=== PATIENT | male | born 1995 | race African-American/Black ===

== ENCOUNTER 2019-09-15 13:16 | Emergency (ER) | payer BC ==
[~2019-09-15] VITALS: Ht 180.3 cm; Wt 68.0 kg
[~2019-09-15 13:16] MED LIST: ACULAR5 ML RIGHT EYE; IBUPROFEN600 MG ORAL; NKM
[2019-09-15 13:40] VITALS: BP 135/77
--- NOTE | 2019-09-15 13:40 | NUR ---
ED Nurse Note: PT CAME IN TO ED DUE TO ANXIETY X 2 WEEKS. PLACED VSS, PLACED ON BED.
--- NOTE | 2019-09-15 13:42 | NUR ---
ED Nurse Note: ERPA on bedside.
--- NOTE | 2019-09-15 13:46 | Emergency Room Report ---
History of Present Illness General Chief Complaint: General Complaint Source: Patient Present Illness HPI 23-year-old male with no signal past medical history here complaining of pain extremely anxious x2 weeks. Patient reported 2 weeks ago he broke up with his girlfriend and he has been anxious ever since. Denies any SI and HI. Complains of difficulty sleeping at night and lack of appetite. Denies visual auditory hallucination, impulsivity, grandiosity. Has not taken medication for anxiety in the past. Reports that he is interested in the start of medication and therapy. Reports that last night he took 1 pill of Meg and has been anxious. Denies chest pain, shortness of breath, palpitation, headache or dizziness. Denies any methamphetamine use, other drug use, tobacco smoke, alcohol intake. Allergies: Coded Allergies: No Known Allergies (Unverified , 08/19/15) YES VERIFIED Patient History Past Medical History: see triage record Past Surgical History: unable to obtain Family History: none Immunizations: UTD Reviewed Nursing Documentation: PMH: Agreed; PSxH: Agreed Nursing Documentation-PMH Past Medical History: No History, Except For Review of Systems All Other Systems: negative except mentioned in HPI Physical Exam Vital Signs Date Time Temp Pulse Resp B/P (MAP) Pulse Ox O2 Delivery O2 Flow Rate FiO2 09/15/19 13:30 98.2 84 16 135/77 (96) 96 Room Air Sp02 EP Interpretation: reviewed, normal General Appearance: alert/responsive, no apparent distress, GCS 15, non-toxic Head: atraumatic Eyes: PERRL, lids + conjunctiva normal ENT: hearing intact, no angioedema Neck: supple/symm/no masses, no meningismus Respiratory: effort normal, no wheezing, chest symmetrical Cardiovascular: regular rate, rhythm, no edema Cardiovascular #2: 2+ carotid (R), 2+ carotid (L) Gastrointestinal: non-tender, no mass, non-distended, no rebound/guarding, normal bowel sounds Musculoskeletal: gait & station normal, normal ROM, strength & tone normal, non -tender Neurologic: oriented x3, sensory intact, normal speech Psychiatric: memory normal, no suicidal/homicidal ideation, anxious Skin: no rash, well hydrated Lymphatic: normal inspection Medical Decision Making PA Attestation All my diagnosis and treatment plans were reviewed ad discussed with my supervising physician Dr. Bell Diagnostic Impression: Primary Impression: Anxiety ER Course 23-year-old male with no signal past medical history here complaining of pain extremely anxious x2 weeks. Patient reported 2 weeks ago he broke up with his girlfriend and he has been anxious ever since. Denies any SI and HI. Complains of difficulty sleeping at night and lack of appetite. Denies visual auditory hallucination, impulsivity, grandiosity. Has not taken medication for anxiety in the past. Reports that he is interested in the start of medication and therapy. Reports that last night he took 1 pill of Meg and has been anxious. Denies chest pain, shortness of breath, palpitation, headache or dizziness. Denies any methamphetamine use, other drug use, tobacco smoke, alcohol intake. Ddx considered but are not limited to: generalized anxiety disorder, panic attack, depression with psychotic feature, bipolar disorder, drug overdose Vital signs: are WNL, pt. is afebrile H&PE are most consistent with: Ddx considered but are not limited to: generalized anxiety disorder, panic attack, depression with psycotic featurs, bipolar disorder, drug overdose Vital signs: are WNL, pt. is afebrile H&PE are most consistent with: anxiety ORDERS: none required at this time, the diagnosis is clinical ED INTERVENTIONS: None required at this time. DISCHARGE: At this time pt. is stable for d/c to home. Will provide printed patient care instructions, and any necessary prescriptions. Care plan and follow up instructions have been discussed with the patient prior to discharge. At this time I gave patient a list of different mental health facilities that he can go to as I did not feel comfortable in starting him on any SSRI or SNRI as he reported that he does not know if he will remain compliant with taking his medication. Patient has no suicidal homicidal ideation and agrees to go to those mental health facilities. I advised him to stop using any drugs especially mildly as able increase his anxiety. If worsening symptoms return to the emergency room Last Vital Signs Date Time Temp Pulse Resp B/P (MAP) Pulse Ox O2 Delivery O2 Flow Rate FiO2 09/15/19 13:40 84 16 Room Air 09/15/19 13:30 98.2 135/77 (96) 96 Disposition: HOME, SELF-CARE Condition: Stable Patient Instructions: Generalized Anxiety Disorder Additional Instructions: Follow-up with a psychiatrist and a therapist in order to start anxiety medication possibly or therapy. Avoid using Meg or any other drugs. Try to minimize avoid tobacco smoking marijuana use. If worsening symptoms return to the emergency room Orville Albarran Sep 15, 2019 13:46
[2019-09-15 13:53] VITALS: BP 135/77
--- NOTE | 2019-09-15 13:53 | NUR ---
ER DISCHARGE NOTE: Pt is cleared to be discharged per ERMD. Pt is AOx4, VSS, on RA. pt was given dc and prescription instructions, pt was able to verbalize understanding, pt id band removed. pt is able to ambulate with steady gait. pt took all belongings.
== END 2019-09-15 13:53 | disposition home or self-care (01) ==
LOC: EMR 13:45
DX: F41.9 Anxiety disorder, unspecified (principal)
CPT/HCPCS: 99282

== ENCOUNTER 2019-10-10 06:45 | Emergency (ER) | payer BC ==
[~2019-10-10] VITALS: Ht 180.3 cm; Wt 52.2 kg
[2019-10-10 07:06] VITALS: BP 141/88
--- NOTE | 2019-10-10 07:10 | NUR ---
ED Nurse Note: Patient walked into ED from home c/o longstanding depression, unknown when it started. Patient states he has been unable to function normally recently. Patient has used MDMA in the past to help feel better. Patient AxO x 4, no suicidal ideation or desire to hurt others.
--- NOTE | 2019-10-10 07:20 | Emergency Room Report ---
History of Present Illness General Chief Complaint: General Complaint Source: Patient Present Illness HPI Patient presents complaining about anxiety. This has been going on for several months. The main factor is a relationship with a girlfriend. He has been self treating with Meg's. He took 1 before coming in today. He says he takes them less than twice a week. At times he gets panic attacks with palpitations and feeling of pressure in his chest. He has found that walking helps with these. He has had some trouble sleeping but not regularly. He has been able to eat without any vomiting or abdominal pain. He is not losing weight. He feels depressed at times. At times he does not care what happens in his life but does not have suicidal ideation or thoughts of harming himself. He has a group of friends who have been supportive. He occasionally drinks alcohol but not daily. His living situation is stable and there are no conflicts and he is safe. He has not sought psychiatric or psychological help in the past. He is never required hospitalization. No fevers, chills, sore throat, nausea, diarrhea, dysuria, joint pain, rashes, visual changes, dizziness, headache. Denies major medical problems. The patient had a full physical with labs and EKG 4 months ago. He says that all results were normal. 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 Reviewed Nursing Documentation: PMH: Agreed; PSxH: Agreed Nursing Documentation-PM Past Medical History: No Stated History Review of Systems All Other Systems: negative except mentioned in HPI Physical Exam Vital Signs Date Time Temp Pulse Resp B/P (MAP) Pulse Ox O2 Delivery O2 Flow Rate FiO2 10/10/19 06:58 98.2 98 16 141/88 (105) 94 Room Air Sp02 EP Interpretation: reviewed, normal General Appearance: well appearing, no apparent distress, GCS 15, non-toxic Head: normocephalic, atraumatic Eyes: bilateral eye normal inspection, bilateral eye PERRL, bilateral eye Scleral Injection ENT: moist mucus membranes Neck: supple Respiratory: chest non-tender, lungs clear, normal breath sounds Cardiovascular #1: regular rate, rhythm Cardiovascular #2: 2+ radial (R) Gastrointestinal: normal inspection, normal bowel sounds, non tender, no mass, non-distended, scaphoid Genitourinary: no CVA tenderness Musculoskeletal: back normal, normal range of motion, gait/station normal Neurologic: alert, motor strength/tone normal, oriented x3, cerebellar normal, speech normal Psychiatric: mood/affect normal, no suicidal/homicidal ideation Skin: no rash, warm/dry Medical Decision Making Diagnostic Impression: Primary Impression: Anxiety ER Course Patient presents with anxiety. Differential includes anxiety, panic attacks, electrolyte imbalance, substance abuse amongst others. He had labs and EKG done 4 months ago and reports that they were normal. He denies suicidal ideation and has good support system. Based on his history and physical exam no studies are necessary at this time. Discussed with patient that mollies may make the situation worse. Discussed the need for outpatient follow-up both with his doctor and also suggested psychiatric help. Discussed treatment plan with patient. Patient stable for outpatient observation and treatment. Last Vital Signs Date Time Temp Pulse Resp B/P (MAP) Pulse Ox O2 Delivery O2 Flow Rate FiO2 10/10/19 07:26 98.2 77 16 141/88 94 Room Air Status: unchanged Disposition: HOME, SELF-CARE Condition: Stable Scripts Hydroxyzine Pamoate (VISTARIL) 25 Mg Capsule 25 MG PO Q8HR PRN for anxiety, #10 CAP Prov: Nate Bradley MD 10/10/19 Referrals: NON PHYSICIAN (PCP) Nate Bradley MD Oct 10, 2019 07:20
[2019-10-10] MEDS ORDERED: VISTARIL25 M1 PO ×2 (07:23)
[2019-10-10 07:26] VITALS: BP 141/88
--- NOTE | 2019-10-10 07:26 | NUR ---
ER DISCHARGE NOTE: Patient cleared for DC by Dr. Bradley, patient AxO x 4, no s/s of acute distress. Patient verbalized understanding of DC instructions, will f/u w/ mental health. Patient ID band removed. Able to ambulate with steady gait, took all belongings.
== END 2019-10-10 07:26 | disposition home or self-care (01) ==
LOC: EMR 07:10
DX: F41.9 Anxiety disorder, unspecified (principal); F19.90 Other psychoactive substance use, unspecified, uncomplicated; Z72.89 Other problems related to lifestyle
CPT/HCPCS: 99282

== ENCOUNTER 2019-10-24 04:38 | Emergency (ER) | payer BC ==
[~2019-10-24] VITALS: Ht 185.4 cm; Wt 69.4 kg
[~2019-10-24 04:38] MED LIST changes: +VISTARIL25 M1 PO
[2019-10-24 04:57] VITALS: BP 157/99
[2019-10-24 06:15] VITALS: BP 122/76
--- NOTE | 2019-10-24 22:26 | Emergency Room Report ---
History of Present Illness General Chief Complaint: Palpitations Source: Patient Present Illness HPI 24-year-old male presents the ED for evaluation. States that he used some drugs tonight and feels anxious. States his heart is racing. Denies chest pain or shortness of breath. Denies hearing voices. Denies nausea or vomiting. States he starting to feel better and wants just to rest. No other aggravating relieving factors. Denies any other associated symptoms COVID-19 risk:Travel to affect: No Allergies: Coded Allergies: No Known Allergies (Unverified , 08/19/15) YES VERIFIED Patient History Past Medical History: none Past Surgical History: none Pertinent Family History: none Social History: Reports: drug use; Denies: smoking, alcohol use Immunizations: UTD Reviewed Nursing Documentation: PMH: Agreed; PSxH: Agreed Nursing Documentation-PMH Past Medical History: No Stated History Review of Systems All Other Systems: negative except mentioned in HPI Physical Exam Vital Signs Date Time Temp Pulse Resp B/P (MAP) Pulse Ox O2 Delivery O2 Flow Rate FiO2 10/24/19 04:48 98.4 110 20 157/99 (118) 97 Room Air Sp02 EP Interpretation: reviewed, normal General Appearance: no apparent distress, alert, GCS 15, non-toxic Head: normocephalic, atraumatic Eyes: bilateral eye normal inspection, bilateral eye PERRL ENT: hearing grossly normal, normal pharynx, no angioedema, normal voice Neck: full range of motion, supple/symm/no masses Respiratory: chest non-tender, lungs clear, normal breath sounds, speaking full sentences Cardiovascular #1: regular rate, rhythm, no edema Cardiovascular #2: 2+ carotid (R), 2+ carotid (L), 2+ radial (R), 2+ radial (L) , 2+ dorsalis pedis (R), 2+ dorsalis pedis (L) Gastrointestinal: normal bowel sounds, non tender, soft, non-distended, no guarding, no rebound Rectal: deferred Genitourinary: normal inspection, no CVA tenderness Musculoskeletal: back normal, normal range of motion, gait/station normal, non- tender Neurologic: alert, motor strength/tone normal, oriented x3, sensory intact, responsive, speech normal Psychiatric: judgement/insight normal, memory normal, mood/affect normal, no suicidal/homicidal ideation Reflexes: 3+ bicep (R), 3+ bicep (L), 3+ tricep (R), 3+ tricep (L), 3+ knee (R) , 3+ knee (L) Skin: no rash Lymphatic: no adenopathy Medical Decision Making Diagnostic Impression: Primary Impression: Panic attack Additional Impression: Substance abuse ER Course Hospital Course 24-year-old male presents to ED status post substance abuse. feels anxious. Clinical course Patient placed on stretcher. Given that patient is able to provide an adequate history, I see no need to check blood work or place an IV. Patient agrees. Patient requests to sleep. Patient allowed to sleep. My assessment shows no evidence of SI/HI requiring psychiatric evaluation. Patient allowed to rest in now awake alert oriented x3. ambulating without difficulty. Safe for discharge for close outpatient follow-up. I will provide referrals Diagnosis - panic attack, substance abuse stable and discharged to home. Followup with PMD. Return to ED if symptoms recur or worsen Last Vital Signs Date Time Temp Pulse Resp B/P (MAP) Pulse Ox O2 Delivery O2 Flow Rate FiO2 10/24/19 06:15 98.2 98 19 122/76 99 Room Air Status: improved Disposition: HOME, SELF-CARE Condition: Stable Referrals: NON PHYSICIAN (PCP) [facility] Patient Instructions: Panic Attacks Michael Whitfield MD Oct 24, 2019 22:26
== END 2019-10-24 06:15 | disposition home or self-care (01) ==
LOC: EMR 05:10
DX: F41.0 Panic disorder [episodic paroxysmal anxiety] (principal); F19.10 Other psychoactive substance abuse, uncomplicated
CPT/HCPCS: 99281

== ENCOUNTER 2020-04-13 06:08 | Emergency (ER) | payer BC ==
[~2020-04-13] VITALS: Ht 180.3 cm; Wt 68.0 kg
--- NOTE | 2020-04-13 06:20 | NUR ---
ED Nurse Note: Pt ambulated to ED from home after taking 5-6 500mg tylenol tabs at 0500. Pt states " I don't want to be here anymore" Pt is A&Ox4, VSS, only reports some mild dizziness. Pt placed on conveyor monitor, Poison control contacted, ERMD at bedside, blood sent to lab. Suicide precautions in place
--- NOTE | 2020-04-13 06:49 | Emergency Room Report ---
History of Present Illness General Chief Complaint: Behavioral Complaint Source: Patient Present Illness HPI 24-year-old male with past medical history of depression presents after Tylenol ingestion at 0500. Pt states he took 5 tylenol 500mg tabs at 0500 with a whole bottle of tequila because he was trying to end his life. He also self-inflicted a laceration to the dorsal left hand. Denies cutting anywhere else on his body. Denies nausea, vomiting, diarrhea, melena, hematochezia, homicidal ideation, auditory/visual hallucination, trauma, headache, neck pain, rash, fever, chest pain, shortness of breath, or other complaints. Patient is stressed from the pandemic. He also had a previous suicide attempt at the beginning of the pandemic. The patient's symptoms were gradual onset, severity was moderate, duration since 2 hours. Quality: Depressed. Does not feel pain Past medical history: Depression Past surgical history: Cyst removal as a child Smoking: Denies Alcohol use: Positive Drug use: Denies Review of systems: CONST: No fevers or chills, No night sweats PULMONARY: No productive cough, No shortness of breath CARDIAC: No chest pain, No palpitations GI: No vomiting, No diarrhea , No melena_or_BRBPR : No dysuria, No hematuria, No discharge NEURO: No new_focal_weakness_or_numbness, No confusion, No vision changes 14 point Review of Systems is otherwise negative except per HPI Physical Exam: GENERAL: Awake_alert_ nontoxic, no acute distress Spo2 98% on RA -normal EYES: Extraocular muscles are intact. Conjunctivae clear. Lids without swelling ENT: External nose and ear normal_in_appearance. Oropharynx clear. Head_ atraumatic, Moist_oral_mucosa NECK: No JVD. No meningismus. No thyromegaly. Supple. Trachea midline RESP: Normal respiratory effort. Symmetric rise. No stridor. Clear_to_ auscultation_No_rales_No_wheezes CARDIAC: Regular rate and regular rhytm. No_significant pedal edema. ABDOMEN: Soft. Nondistended. Nontender_No_rebound_or_guarding. MSK: Normal muscle tone, without rigidity. Extremities without asymmetric deformity or swelling. SKIN: 1 cm left dorsal hand laceration (self-inflicted) to the webspace between the first and second digit. Radial pulse plus 2 out of 4. Compartments are soft and compressible. NEUROLOGIC: Alert, oriented x3. Motor_and_sensation_grossly_intact. No truncal ataxia. Gait_normal Psych: Normal mood and affect, normal judgment and insight Suicidal ideation Denies homicidal ideation, auditory or visual hallucinations - COORDINATION OF CARE Case was discussed with: Patient Any labs and imaging that were ordered were interpreted as part of the medical decision making: Medical Decision Making/Plan: Differential diagnosis includes severe depression, suicidal ideation, bipolar disorder, schizophrenia, drug abuse, drug overdose, among others. Patient endorses suicide attempt by Tylenol ingestion. Poison control notified at 0640 They exhibit no signs of any toxic syndrome or drug / alcohol withdrawal. Labs were ordered for evaluation, and results are reassuring with no evidence of occult overdose, or severe metabolic derangement. Tylenol level 1.5hr after ingestion is 15. Repeat at 3hrs post ingestion is 19. No indication for NAC. Etoh Level 122. Repeat Etoh 101. Repeat CMP is unremarkable. Spoke with Poison Control (Roddy) and updated them on all repeat labs. Recommend medical clearance. Do not recommend NAC at this time. State tylenol is at subtoxic levels at 4hrs and normal LFT and unlikely to uptrend at this point. EKG shows no obvious signs of TCA overdose. The patient was observed for a period of time in the ED with serial neurologic exams. After serial neurologic exams in the emergency department, the patient remains clinically sober. ED intervention included IVFs, thiamine, and ativan. Tdap UTD. Lac is superficial and not requiring sutures. Patient is MEDICALLY CLEARED. The patients presentation seems to be consistent with suicidal ideation, without any complications such as suicide attempt or overdose. The patient appears to be stable for transfer to a psychiatric facility for further psychiatric evaluation and care, without any obvious medical etiology for their symptoms. pipe assembly worker was consulted to assist with placement into an inpatient psychiatric team, and the patient is awaiting evaluation and placement on a psychiatric hold by the PET team. Patient accepted to [facility] for continuation of psychiatric care. He is currently hemodynamically stable. Medically cleared. Allergies: Coded Allergies: No Known Allergies (Unverified , 08/19/15) YES VERIFIED COVID-19 Screening Contact w/high risk pt: No Experienced COVID-19 symptoms?: No COVID-19 Testing performed STUFFED CASING TIER: No Nursing Documentation-PM Past Medical History: No Stated History Physical Exam Vital Signs Date Time Temp Pulse Resp B/P (MAP) Pulse Ox O2 Delivery O2 Flow Rate FiO2 04/13/20 06:25 97.9 80 18 128/73 (91) 95 Room Air Sp02 EP Interpretation: reviewed, normal Medical Decision Making Diagnostic Impression: Primary Impression: Suicidal ideation Additional Impressions: Depression Alcohol abuse Deliberate self-cutting Hand laceration Tylenol ingestion Anxiety EKG Diagnostic Results ANA MARÍA Scribkarri Text 12-lead EKG (interpreted by me) Time: 0638 Indication: Rhythm analysis Tracing visualized and Interpreted by me. Rhythm: Normal sinus rhythm Rate: 71 bpm QTc: 389 Morphology: No_significant_ST_elevations_or_depressions, No STEMI Impression: Normal_sinus_rhythm_without_significant_abnormality Rhythm Strip Diag. Results Rhythm Strip Time: 06:48 EP Interpretation: yes Rate: 71 Rhythm: NSR, no PVC's, no ectopy Reevaluation Time: 12:07 Last Vital Signs Date Time Temp Pulse Resp B/P (MAP) Pulse Ox O2 Delivery O2 Flow Rate FiO2 04/13/20 06:25 97.9 80 18 128/73 (91) 95 Room Air Status: improved Disposition: PSYCH HOSP/UNIT Admit Decision Time: 07:40 Condition: Stable Referrals: NOT CHOSEN IPA/,REFERRING (PCP) Glenny Arreguin D.O. Apr 13, 2020 06:49
[2020-04-13 06:59] VITALS: BP 128/73
[2020-04-13] MEDS ORDERED: Tetanus/Diptheria/Pertussis IM ONE (07:00)
--- NOTE | 2020-04-13 07:07 | NUR ---
HAND-OFF: Report given to BOLIVAR Graves.
[2020-04-13 07:09] LABS: BASOPHILS % (AUTO) 2.2 % (0.0-2.0); EOSINOPHILS % (AUTO) 3.2 % (0.0-3.0); HEMATOCRIT 38.2 % (42.0-52.0); HEMOGLOBIN 12.5 G/DL (14.2-18.0); LYMPHOCYTES % (AUTO) 47.7 % (20.0-45.0); MEAN CORPUSCULAR VOLUME 85 FL (80-99); MONOCYTES % (AUTO) 9.1 % (1.0-10.0); NEUTROPHILS % (AUTO) 37.9 % (45.0-75.0); PLATELET COUNT 230 K/UL (150-450); RED CELL DISTRIBUTION WIDTH 14.3 % (11.6-14.8); WHITE BLOOD COUNT 3.6 K/UL (4.8-10.8)
[2020-04-13 07:21] LABS: ANION GAP 11 mmol/L (5-15); BLOOD UREA NITROGEN 20 mg/dL (7-18); CALCIUM 8.4 MG/DL (8.5-10.1); CARBON DIOXIDE 27 MMOL/L (21-32); CHLORIDE 103 MMOL/L (98-107); CREATININE 1.3 MG/DL (0.55-1.30); POTASSIUM 3.5 MMOL/L (3.5-5.1); SODIUM 141 MMOL/L (136-145)
[2020-04-13 07:25] VITALS: BP 93/46
--- NOTE | 2020-04-13 07:30 | NUR ---
ED Nurse Note: Patient found in the room, resting with eyes closed. Patient arousable when RN called his name. Patient awake, alert, oriented x 4. Regular, unlabored breathing noted. Patient wants to hurt himself by cutting. Denies HI at this time. Denies hearing voice or seeing things that were not here. Suicidal precautions maintained and increased observation. Food/water offered. Comfort measure offered. Bed in lowest position. Room safety check done. Placed patient's belonging in psych locker #3.
[2020-04-13 07:34] LABS: ALANINE AMINOTRANSFERASE 34 U/L (12-78); ALBUMIN 3.9 G/DL (3.4-5.0); ALBUMIN/GLOBULIN RATIO 0.9 (1.0-2.7); ALKALINE PHOSPHATASE 92 U/L (46-116); ASPARTATE AMINO TRANSFERASE 42 U/L (15-37); BILIRUBIN,TOTAL 0.4 MG/DL (0.2-1.0)
[2020-04-13 07:42] LABS: APPEARANCE,URINE CLEAR; BILIRUBIN, URINE NEGATIVE (NEGATIVE); COLOR,URINE PALE YELLOW; GLUCOSE, URINE (UA) NEGATIVE (NEGATIVE); KETONES,URINE NEGATIVE (NEGATIVE); LEUKOCYTE ESTERASE ,URINE NEGATIVE (NEGATIVE); NITRITE,URINE NEGATIVE (NEGATIVE); PH,URINE 6 (4.5-8.0); PROTEIN,URINE NEGATIVE (NEGATIVE); UROBILINOGEN,URINE NORMAL MG/DL (0.0-1.0)
[2020-04-13] MEDS ORDERED: Thiamine 100mg tab ORAL ONE (07:45)
[2020-04-13] MEDS ORDERED: LORazepam 1mg tab ORAL ONE (07:45)
--- NOTE | 2020-04-13 08:14 | NUR ---
ED Nurse Note: Contacted Poison Control and spoke to Osiris. Recommended repeat acetaminophen level and liver function level at 0900. Addendum: 04/13/20 at 0911 by JEB She also recommends to start antidote if Tyleno level is >150. Dr. Arreguin notified.
--- NOTE | 2020-04-13 08:54 | NUR ---
ED Nurse Note: BOLIVAR Graves irrigated and cleaned the wound with NS.
[2020-04-13 08:56] LABS: ANION GAP 8 mmol/L (5-15); BLOOD UREA NITROGEN 18 mg/dL (7-18); CARBON DIOXIDE 29 MMOL/L (21-32); CHLORIDE 106 MMOL/L (98-107); CREATININE 1.2 MG/DL (0.55-1.30); POTASSIUM 3.7 MMOL/L (3.5-5.1); SODIUM 143 MMOL/L (136-145)
[2020-04-13 09:01] LABS: ALANINE AMINOTRANSFERASE 27 U/L (12-78); ALBUMIN 3.4 G/DL (3.4-5.0); ALBUMIN/GLOBULIN RATIO 1.1 (1.0-2.7); ALKALINE PHOSPHATASE 83 U/L (46-116); ASPARTATE AMINO TRANSFERASE 30 U/L (15-37); BILIRUBIN,TOTAL 0.3 MG/DL (0.2-1.0)
--- NOTE | 2020-04-13 09:05 | NUR ---
ED Nurse Note: RN updated patient's mom (Jose Mart at [phone]) with plan of care after obtaining permission from patient. Provided portable phone to patient.
--- NOTE | 2020-04-13 10:16 | NUR ---
ED Nurse Note: Patient is asleep. Bed in lowest position, semi-sanchez position. Suicidal precaution maintained.
[2020-04-13 11:01] VITALS: BP 93/46
--- NOTE | 2020-04-13 12:00 | NUR ---
ED Nurse Note: Patient is calm. Food/water/ comfort measures offered. Patient went back to sleep.
--- NOTE | 2020-04-13 13:34 | NUR ---
ED Nurse Note: Patient resting in bed. Patient remained calm and arousable when RN called his name. Patient agreed to be transferred to [facility]. RN provided information to his mom after obtaining patient's permission.
--- NOTE | 2020-04-13 14:05 | NUR ---
Pt found in bed with eyes closed. VS taken, and notified of transfer to [facility], Pt agreeable and signed transfer paper. Encouraged pt to eat meal, pt states "I dont want food" and closed eyes.
[2020-04-13 14:21] VITALS: BP 117/71
--- NOTE | 2020-04-13 14:39 | NUR ---
ED Nurse Note: Called [place] rainer Borden report given to BOLIVAR Marcus at [facility]. Notified [facility] scheduled for milk pickup truck driver at 1500.
[2020-04-13 16:01] VITALS: BP 112/68
--- NOTE | 2020-04-13 16:05 | NUR ---
ED Nurse Note: Pt transfered to [facility]. Ate 40% of meal before leaving. Report and paperwork given to Michel ([facility]), belongings given to Michel. IV removed.
--- NOTE | 2020-04-13 16:21 | NUR ---
ED Nurse Note: Provided updated information to mom.
== END 2020-04-13 16:01 ==
LOC: EMR 06:41
DX: R45.851 Suicidal ideations (principal); F32.9 Major depressive disorder, single episode, unspecified; F10.10 Alcohol abuse, uncomplicated; F41.9 Anxiety disorder, unspecified; S61.412A Laceration without foreign body of left hand, initial encounter; T39.1X2A Poisoning by 4-Aminophenol derivatives, intentional self-harm, initial encounter; Y92.9 Unspecified place or not applicable; Y90.6 Blood alcohol level of 120-199 mg/100 ml; X78.9XXA Intentional self-harm by unspecified sharp object, initial encounter; Y93.89 Activity, other specified
CPT/HCPCS: 36415; 80053; 80307; 81003; 84443; 84484; 85025; 85610; 90471; 90715; 93005; 96360; 99285; G0480; J7030; U0002